=== PATIENT | female | born 1985 | race Caucasian/White ===

== ENCOUNTER 2022-01-05 06:01 | Inpatient (IN) ==
[~2022-01-05 06:01] MED LIST: Acetaminophen IV 1,000 MG/100 ML BAG IVPB ONE; Famotidine 20 MG/2 ML VIAL IVP ONE; Ringers Solution, Lactated 1,000 ML IVC ONE; Scopolamine Patch 1.5 MG PATCH.TD72 TD ONE
[2022-01-05] MEDS ORDERED: Hydrocortisone Sodium Succ 100 MG/2 ML VIAL IVP ONE (07:00)
[2022-01-05] MEDS ORDERED: *HR* Midazolam HCl 2 MG/2 ML VIAL ONE (07:16)
[2022-01-05] MEDS ORDERED: *HR* FentaNYL (PF) 100 MCG/2 ML VIAL ONE ×2 (07:16→09:02)
[2022-01-05] MEDS ORDERED: *HR* FentaNYL (PF) 100 MCG/2 ML VIAL IVP PRN (07:28)
[2022-01-05] MEDS ORDERED: *HR* Metoprolol 5 MG/5 ML VIAL IVP PRN (07:29)
[2022-01-05] MEDS ORDERED: Naloxone 0.4 MG/ML INJ IVP PRN ×2 (07:29→12:08)
[2022-01-05] MEDS ORDERED: Nitroglycerin 0.4 MG TAB.SUBL SL PRN (07:29)
[2022-01-05] MEDS ORDERED: Albuterol 2.5 MG/3 ML NEBULIZER IH PRN (07:29)
[2022-01-05] MEDS ORDERED: *HR* Succinylcholine 200 MG/10 ML VIAL IVP ONE (07:30)
[2022-01-05] MEDS ORDERED: Ondansetron 4 MG/2 ML VIAL ONE (07:30)
[2022-01-05] MEDS ORDERED: *HR* Rocuronium Bromide 50 MG/5 ML VIAL ONE ×2 (07:30→08:10)
[2022-01-05] MEDS ORDERED: Lidocaine -MPF 2% 2 ML VIAL ONE (07:30)
[2022-01-05] MEDS ORDERED: Clindamycin 900 MG/50 ML 900 MG/50 ML IV.SOLN IVPB ONE (07:41)
[2022-01-05] MEDS ORDERED: *HR* Metoprolol 5 MG/5 ML VIAL IVP ONE (08:20)
[2022-01-05] MEDS: *HR* HYDROmorphone (PF) 1 MG/ML SYRINGE IVP PRN ×4 (09:16→10:23)
[2022-01-05] MEDS ORDERED: Ketorolac 30 MG/ML VIAL IVP ONE (09:32)
[2022-01-05] MEDS ORDERED: *HR* OxyCODONE Immed Rel 5 MG TABLET PO PRN (11:25)
[2022-01-05] MEDS ORDERED: Ondansetron 4 MG/2 ML VIAL IVP PRN (12:08)
[2022-01-05] MEDS ORDERED: Dextrose Gel 15 GM/37.5 ML TUBE PO PRN ×2 (12:08)
[2022-01-05] MEDS ORDERED: D5% in Water 1,000 ML IVC PRN (12:08)
[2022-01-05] MEDS ORDERED: *HR* Dextrose 50 % in Water (Syg) 50 ML SYRINGE IVP PRN (12:08)
[2022-01-05] MEDS ORDERED: RIZATRIPTAN BENZOATE 5 MG PO PRN (12:08)
[2022-01-05] MEDS ORDERED: *HR* HYDROcodone/Acet 5/325 mg TABLET PO PRN (12:08)
[2022-01-05] MEDS: 0.9 % Sodium Chloride 1,000 ML IVC SCH (12:47)
[2022-01-05] MEDS: Ipratropium/Albuterol Neb 3 ML IH SCH ×4 (12:50→23:53)
[2022-01-05] MEDS ORDERED: Patient Taking Own Medication 1 EACH PO PRN (13:16)
[2022-01-05] MEDS: Insulin LISPRO 300 UNITS/3 ML VIAL SUBQ SCH ×3 (13:41→21:34)
[2022-01-05] MEDS: Gabapentin 300 MG CAPSULE PO SCH ×2 (13:42→21:35)
[2022-01-05] MEDS: *HR* Heparin 5,000 UNIT/ML VIAL SQ SCH ×2 (13:42→21:36)
[2022-01-05] MEDS: *HR* OxyCODONE/APAP 7.5/325 TABLET PO PRN ×3 (14:48→21:37)
[2022-01-05] MEDS: *HR* Metformin 500 MG TABLET PO SCH (18:06)
[2022-01-05] MEDS: Famotidine 20 MG TABLET PO SCH (21:35)
[2022-01-05] MEDS: Sennosides/Docusate Sodium TABLET PO SCH (21:36)
[2022-01-05] MEDS: atenoloL 25 MG TABLET PO SCH (21:36)
[2022-01-06] MEDS: 0.9 % Sodium Chloride 1,000 ML IVC SCH (02:12)
[2022-01-06 02:41] LABS: Hematocrit 36.6 % (35.3-44.9); Hemoglobin 11.2 g/dL (11.5-15.4); Mean Corpuscular HGB Conc 30.6 g/dL (31.6-35.5); Mean Corpuscular Hemoglobin 26.1 pg (28.0-33.3); Mean Corpuscular Volume 85.3 fL (83.0-100.0); Mean Platelet Volume 9.2 fL (9.4-12.4); Platelet Count 261 K/mcL (140-400); Red Blood Count 4.29 M/mcL (3.82-4.97); Red Cell Distribution Width 20.5 % (11.5-14.5); White Blood Count 14.9 K/mcL (4.3-11.1)
[2022-01-06 02:58] LABS: BUN/Creatinine Ratio 18 (6-26); Blood Urea Nitrogen 12 mg/dL (6-20); Calcium 8.7 mg/dL (8.6-10.3); Carbon Dioxide 26 mEq/L (23-29); Chloride 104 mEq/L (98-107); Glucose 159 mg/dL (70-105); Magnesium 1.6 mg/dL (1.6-2.6); Osmolality,Calculated 285 (280-300); Potassium 4.1 mEq/L (3.5-5.1); Sodium 136 mEq/L (136-145); eGFR For African Americans > 60 (> 60); eGFR For Non-African Americans > 60 (> 60)
[2022-01-06] MEDS: *HR* OxyCODONE/APAP 7.5/325 TABLET PO PRN ×5 (03:13→21:33)
[2022-01-06] MEDS: Ipratropium/Albuterol Neb 3 ML IH SCH ×6 (04:39→23:33)
[2022-01-06] MEDS: *HR* Heparin 5,000 UNIT/ML VIAL SQ SCH ×3 (06:21→21:36)
[2022-01-06] MEDS: atenoloL 25 MG TABLET PO SCH ×2 (08:21→21:34)
[2022-01-06] MEDS: Famotidine 20 MG TABLET PO SCH ×2 (08:21→21:33)
[2022-01-06] MEDS: Gabapentin 300 MG CAPSULE PO SCH ×3 (08:21→21:34)
[2022-01-06] MEDS: Insulin LISPRO 300 UNITS/3 ML VIAL SUBQ SCH ×4 (08:21→21:35)
[2022-01-06] MEDS: Sennosides/Docusate Sodium TABLET PO SCH ×2 (08:22→21:34)
[2022-01-06] MEDS: *HR* Metformin 500 MG TABLET PO SCH (17:13)
[2022-01-07] MEDS: Ipratropium/Albuterol Neb 3 ML IH SCH ×3 (04:03→11:43)
[2022-01-07] MEDS: *HR* Heparin 5,000 UNIT/ML VIAL SQ SCH (05:48)
[2022-01-07] MEDS: *HR* OxyCODONE/APAP 7.5/325 TABLET PO PRN (06:47)
[2022-01-07] MEDS: atenoloL 25 MG TABLET PO SCH (08:32)
[2022-01-07] MEDS: Famotidine 20 MG TABLET PO SCH (08:32)
[2022-01-07] MEDS: Sennosides/Docusate Sodium TABLET PO SCH (08:33)
[2022-01-07] MEDS: Insulin LISPRO 300 UNITS/3 ML VIAL SUBQ SCH ×2 (08:33→11:58)
[2022-01-07] MEDS: Gabapentin 300 MG CAPSULE PO SCH (08:33)
[2022-01-07 11:42] VITALS: O2SAT 100
[2022-01-07 11:43] VITALS: TEMP 97.9
[2022-01-07 12:24] VITALS: PULSE 113
[2022-01-07 12:25] VITALS: BP 113/82
== END 2022-01-07 13:00 | disposition home or self-care (01) | DRG 121 ==
LOC: SAMDAY 06:01 → 2NNU 12:00
PROVIDERS: ADMIT Thoracic Surgery (Cardiothoracic Vascular Surgery); ATTEND Thoracic Surgery (Cardiothoracic Vascular Surgery)